=== PATIENT | female | born 1955 | race African-American/Black ===

== ENCOUNTER 2018-01-17 02:06 | Emergency (ER) | payer MEDICARE ==
[2015-05-03 10:41] VITALS: BMI 38.3
[~2018-01-17 02:06] MED LIST: CARAFATE1 G PO; CYCLOBENZAPRINE10 MG PO; DEMADEX20 MG PO; DURAGESIC1 PATCH .3 TRANSDERM; HYDROCODONE-APA1 TAB PO; LISINOPRIL10 MG PO; MEDROL DOSE PACK4 MG PO; NEURONTIN 300300 MG PO; PEPCID40 MG PO; POTASSIUM CHLO10 ME1 PO; PROTONIX40 MG PO; TRAZODONE HCL50 MG PO; VALTREX500 MG PO; XALATAN 0.0052.5 ML EACH EYE; ZANAFLEX4 MG PO; ZYBAN150 MG PO
== END 2018-01-17 03:07 | disposition home or self-care (01) ==
LOC: D.ER 02:06
DX: M54.2 Cervicalgia (principal); M79.605 Pain in left leg; Y04.2XXA Assault by strike against or bumped into by another person, initial encounter; Y93.89 Activity, other specified; Y92.89 Other specified places as the place of occurrence of the external cause; I10 Essential (primary) hypertension; H40.9 Unspecified glaucoma; K21.9 Gastro-esophageal reflux disease without esophagitis; F17.200 Nicotine dependence, unspecified, uncomplicated

== ENCOUNTER 2020-05-04 13:30 | Outpatient (CLI) | payer MEDICARE ==
[2015-05-03 10:41] VITALS: BMI 38.3
== END 2020-05-04 14:30 | disposition home or self-care (01) ==
LOC: D.MAMMO 13:30
PROVIDERS: ATTEND Family Medicine
DX: Z12.31 Encounter for screening mammogram for malignant neoplasm of breast (principal)

== ENCOUNTER 2020-07-15 17:20 | Inpatient (IN) | payer MEDICARE, MEDICAID ==
[~2020-07-15] VITALS: Ht 165.1 cm; Wt 104.5 kg
--- NOTE | ~2020-07-15 | OP ---
PATIENT NAME: CRISS CHAKRABORTY MEDICAL RECORD: [id number] LOCATION:[facility].E11- ADMISSION DATE:07/15/20 SURGEON: JASE BERNARD MD DATE OF OPERATION: 07/16/2020 PREOPERATIVE DIAGNOSES: 1. Acute appendicitis with localized peritonitis. 2. Hypertension. POSTOPERATIVE DIAGNOSES: 1. Acute appendicitis with localized peritonitis. 2. Hypertension. PROCEDURE: Laparoscopic appendectomy. SURGEON: Jase Bernard MD REPORT OF PROCEDURE: The patient's abdomen was prepped and draped in sterile fashion. A cutdown was made on the superior aspect of the umbilicus. The 0 Vicryls were placed in the fascia bilaterally and the fascia was incised with a 15 blade. I then bluntly entered the peritoneal cavity and placed a 12 mm Marisela port. Under direct visualization, a 5 mm trocar was placed in the left lower quadrant and another was placed in the suprapubic region. The patient had some adhesions of the omentum to the anterior abdominal wall near the suprapubic region and these were all taken down with electrocautery and blunt dissection. We eventually were able to visualize the patient's appendix which was lying just lateral to the cecum and was noted to be quite swollen, but no signs of any gangrene, perforation, or abscess pockets. The window was made at the base of the mesoappendix and the appendix was transected at its base using a 45 blue load Endo MIGUEL stapler. I then freed up the mesentery and was able to transect the mesentery with a 45 white load Endo MIGUEL stapler. The appendix was placed into an EndoCatch bag. Any bleeding from the staple line was treated with electrocautery. We then irrigated out the right lower quadrant and assured there was no sign of any bleeding or perforation. The ports and insufflation were then removed and the appendix was taken out through the umbilicus. The umbilical fascia was closed with interrupted 0 Vicryls times 3. The wounds were then irrigated out with normal saline and infused with 10 mL of 0.25% Marcaine with epinephrine. The skin incisions were all closed with subcutaneous 5-0 Monocryl and dressed appropriately. COMPLICATIONS: None. CONDITION: Stable. ANESTHESIA: General endotracheal and local. BLOOD LOSS: Minimal. NTS:[id number] Voice Confirmation ID: [id number] DOCUMENT ID: [id number] OPERATIVE REPORT [id number] CRISS CHAKRABORTY CHRISTIAN MD CC: [id number] DICTATION DATE: 07/16/20 1037 BIOLOGY MANAGER: 07/16/20 1830 DIS IN 07/16/20 [place] [id number] [place] [id number]
[2020-07-15 17:46] VITALS: Ht 165.1 cm; Wt 104.5 kg
[2020-07-15] MEDS ORDERED: LISINOPRIL40 MG PO (17:47)
[2020-07-15 18:22] LABS: BASOPHILS 0.2 % (0-2); EOSINOPHILS 5.3 % (0-7); HEMATOCRIT 38.6 % (36.0-48.0); IMMATURE GRANULOCYTES 0.2 % (0-5); LYMPHOCYTES 25.5 % (15-50); MCH 26.9 pg (26.0-34.0); MCHC 31.1 g/dL (31.0-37.0); MCV 86.5 fL (80.0-100.0); MEAN PLATELET VOLUME 9.4 fL (7.4-10.4); MONOCYTES 7.5 % (2-11); NEUTROPHILS 61.3 % (40-80); PLATELET COUNT 330 10x3/uL (130-400); RBC 4.46 10x6/uL (4.00-5.40); RDW 15.2 % (11.5-14.5)
[2020-07-15 18:24] LABS: BILIRUBIN NEGATIVE (NEGATIVE); KETONE NEGATIVE (NEGATIVE); NITRITE NEGATIVE (NEGATIVE); UROBILINOGEN NORMAL mg/dL (< 2)
[2020-07-15 18:28] LABS: CALC OSMOLALITY 279 mosm/kg (275-300); CALCIUM 9.4 mg/dL (8.5-10.1); CARBON DIOXIDE 28.4 mmol/L (21.0-32.0); CHLORIDE - SERUM 105 mmol/L (98-107); GLUCOSE 98 mg/dL (74-106); POTASSIUM - SERUM 4.6 mmol/L (3.5-5.1); SODIUM 140 mmol/L (136-145); UREA NITROGEN 14 mg/dL (7-18); eGFR NON AFRICAN AMERICAN 59 mL/min (90-120)
[2020-07-15 18:37] LABS: ALBUMIN 3.3 g/dL (3.4-5.0); ALKALINE PHOSPHATASE 83 U/L (30-120); ALT (SGPT) 10 U/L (10-68); AMYLASE - SERUM 123 U/L (25-115); LIPASE 100 U/L (73-393); PROTEIN - SERUM 7.5 g/dL (6.4-8.2)
[2020-07-15 18:45] LABS: TROPONIN-I < 0.017 ng/mL (0.000-0.060)
[2020-07-16 00:34] VITALS: BP 141/76
[2020-07-16 06:24] VITALS: BP 158/87
[2020-07-16 08:55] VITALS: BP 155/88
--- NOTE | 2020-07-16 08:55 | NUR ---
LR CONT TO SURGERY, NS STOPPPED AT THIS TIME
--- NOTE | 2020-07-16 08:55 | NUR ---
REPORT GIVEN TO OR CREW AND PT TAKEN TO SURGERY AT THIS TIME
[2020-07-16] MEDS ORDERED: PERCOCET 5-3251 TAB PO (10:33)
--- NOTE | 2020-07-16 13:50 | NUR ---
DISCHARGE INSTRUCTIONS REVIEWED WITH PATIENT, DISCHARGED HOME VIA WHEELCHAIR TO PRIVATE VEHICLE WITH FRIEND
== END 2020-07-16 13:50 | disposition home or self-care (01) | DRG 343 ==
LOC: D.ER 17:20 → OBSVTIME 21:27 → D.EDHOLD 21:27
PROVIDERS: Family Medicine; ADMIT Surgery; ATTEND Surgery
PROC: 0DTJ4ZZ Resection of Appendix, Percutaneous Endoscopic Approach (ICD-10-PCS; principal; 2020-07-16 14:00)
DX: K35.30 Acute appendicitis with localized peritonitis, without perforation or gangrene (principal); I10 Essential (primary) hypertension